=== PATIENT | male | born 1980 | race Two or more races ===

== ENCOUNTER → 2017-09-04 | Outpatient (CLI) | payer BC ==
[2017-09-04] MEDS: NORMAL SALINE IV (08:56)
[2017-09-04] MEDS: SINCALIDE IV (08:56)
== END | disposition home or self-care (01) ==
LOC: US 05:58
DX: R10.13 Epigastric pain (principal)
CPT/HCPCS: 76700; 78226; 96374; 96375; A9537; J2805